=== PATIENT | female | born 1980 | race Caucasian/White ===

== ENCOUNTER → 2017-03-06 | Outpatient (CLI) | payer MEDICARE, OTHER ==
[2016-10-05 18:27] VITALS: BP 131/79
[~2017-03-06] MED LIST: COLE500G2 PO; DIAZ5TAB4 PO; DICY10CA53 PO; DIPH1TAB PO; FERR-26 PO; HYDR25TA PO; LAMO200T PO; LITH5CAP PO; OMEP10CA3 PO; RAME8TAB8 PO; RANI75TA95 PO; VENL25TA PO
--- NOTE | 2017-03-06 15:15 | EKG ---
[facility] [address] [place] [address] Test Date: 2017-03-06 Test Time: 15:16:23 Pat Name: LINDSAY COBOS Department: Room: Gender: F Transplant Case Manager: MARQUIS : 1980 Requested By: NAZ KNIGHT Order Number: [id number] Reading MD: Bk Adam Measurements Intervals [place]illiam Rate: 75 P: 28 TN: 132 QRS: 43 QRSD: 90 T: 20 QT: 410 QTc: 461 Interpretive Statements SINUS RHYTHM INCOMPLETE RIGHT BUNDLE BRANCH BLOCK NO SPECIFIC ECG ABNORMALITIES RI6.01 No previous ECG available for comparison Electronically Signed On 03-08-2017 11:31:32 CDT by Bk Adam
[2017-03-06 15:19] LABS: BASO # 0.1 x10^3/uL (0.0-0.2); BASO % 1 % (0-3); EOS % 0 % (0-3); HEMATOCRIT 37.8 % (36.0-47.0); LYMPH % 14 % (24-48); MEAN CORPUSCULAR HEMOGLOBIN 26 pg (25-35); MEAN CORPUSCULAR HGB CONC 32 g/dL (31-37); MEAN CORPUSCULAR VOLUME 83 fL (79-100); MONO % 4 % (0-9); NEUT % 81 % (31-73); PLATELET COUNT 266 x10^3/uL (140-400); RED BLOOD COUNT 4.54 x10^6/uL (3.50-5.40); RED CELL DISTRIBUTION WIDTH 16.9 % (11.5-14.5); WHITE BLOOD COUNT 14.3 x10^3/uL (4.0-11.0)
[2017-03-06 15:48] LABS: ALBUMIN 3.6 g/dL (3.4-5.0); ALBUMIN/GLOBULIN RATIO 0.9 (1.0-1.7); CALCIUM 8.9 mg/dL (8.5-10.1); CREATININE 1.1 mg/dL (0.6-1.0); GFR 55.9; POTASSIUM 3.6 mmol/L (3.5-5.1); TOTAL BILIRUBIN 0.2 mg/dL (0.2-1.0); TOTAL PROTEIN 7.5 g/dL (6.4-8.2)
[2017-03-06 17:51] LABS: BILIRUBIN,URINE SMALL (NEG); GLUCOSE,URINE NEGATIVE (NEG); NITRITE,URINE NEGATIVE (NEG); PH,URINE 5.5; PROTEIN,URINE 30 mg/dL (NEG-TRACE)
[2017-03-06 18:16] LABS: BACTERIA,URINE 0 /HPF (0-FEW); RBC,URINE OCC /HPF (0-2); SQUAMOUS EPITHELIAL CELL,UR OCC /LPF; WBC,URINE OCC /HPF (0-4)
== END | disposition home or self-care (01) ==
LOC: SURGPAT 14:12
PROVIDERS: ATTEND Obstetrics & Gynecology
DX: Z01.818 Encounter for other preprocedural examination (principal)
CPT/HCPCS: 36415; 80053; 81001; 85027; 93005

== ENCOUNTER 2017-03-14 05:54 | Observation (INO) | payer MEDICARE, MEDICAID ==
[2017-03-14] VITALS (7 sets, daily range): BP systolic 95–122; BP diastolic 56–68
[~2017-03-14] VITALS: Ht 157.5 cm; Wt 139.3 kg
[2017-03-14] MEDS ORDERED: CLINDAMYCIN 600MG PREMIX 50 ML IV ONE (06:00)
[2017-03-14] MEDS ORDERED: PROCHLORPERAZINE 10 MG/2 ML VIAL. IV PRN (07:00)
[2017-03-14] MEDS ORDERED: ONDANSETRON PF 4 MG/2 ML VIAL. IV PRN ×2 (07:00→09:30)
[2017-03-14] MEDS ORDERED: MORPHINE SULFATE 2 MG/ML DISP.SYRIN. IV PRN ×2 (07:00→09:30)
[2017-03-14] MEDS ORDERED: fentaNYL PF VIAL 100 MCG/2 ML VIAL IV PRN ×2 (07:00)
[2017-03-14] MEDS ORDERED: IV RINGERS,LACTATED 1000ML 1,000 ML IV SCH ×2 (07:00)
[2017-03-14] MEDS ORDERED: LIDOCAINE 1% 1 ML SYRINGE. ID PRN (07:00)
[2017-03-14] MEDS ORDERED: HYDROmorphone 2 MG/ML VIAL IV PRN (07:00)
[2017-03-14 07:12] LABS: NEG OBC UR NEG; POS OBC UR POS
[2017-03-14] MEDS ORDERED: ESTROGENS, CONJ VAGINAL CREAM 30GM TUBE. ONE (07:32)
[2017-03-14] MEDS ORDERED: METHYLENE BLUE 1% 1 ML VIAL. ONE (07:32)
[2017-03-14] MEDS ORDERED: BUPIVACAINE-EPI 0.25%-1:200000 50 ML VIAL. ONE (07:32)
[2017-03-14] MEDS ORDERED: fentaNYL PF VIAL 100 MCG/2 ML VIAL ONE (07:36)
[2017-03-14] MEDS ORDERED: ONDANSETRON PF 4 MG/2 ML VIAL. ONE (07:36)
[2017-03-14] MEDS ORDERED: DEXAMETHASONE SOD PHOS 20 MG/5 ML VIAL. ONE (07:36)
[2017-03-14] MEDS ORDERED: DESFLURANE 61 TO 120 MINUTES IH ONE (07:36)
[2017-03-14] MEDS ORDERED: ESMOLOL 100 MG/10 ML VIAL. IV ONE (07:36)
[2017-03-14] MEDS ORDERED: PROPOFOL 20 ML IV ONE ×2 (07:36→07:40)
[2017-03-14] MEDS ORDERED: LIDOCAINE 2% PF Vial for OR 5 ML VIAL. ONE (07:36)
[2017-03-14] MEDS ORDERED: MIDAZOLAM HCL/PF 2 MG/2 ML VIAL. ONE (07:36)
[2017-03-14] MEDS ORDERED: SUCCINYLCHOLINE 200 MG/10 ML VIAL. ONE (07:40)
[2017-03-14] MEDS ORDERED: KETOROLAC 30 MG/ML INJ FOR OR. INJ ONE (07:42)
[2017-03-14] MEDS ORDERED: ROCURONIUM 50 MG/5 ML VIAL. ONE (07:42)
[2017-03-14] MEDS ORDERED: HEPARIN PF for SUB-Q USE 5,000 UNIT/0.5 ML VIAL. SQ ONE (07:45)
[2017-03-14] MEDS ORDERED: PHENYLEPHRINE in 0.9% NACL PF 1 MG/10 ML DISP.SYRIN. IV ONE (08:26)
[2017-03-14] MEDS ORDERED: GLYCOPYRROLATE 1 MG/5 ML VIAL. ONE (09:19)
[2017-03-14] MEDS ORDERED: NEOSTIGMINE METHYLSULFATE 5 MG/5 ML SYRINGE. ONE (09:20)
[2017-03-14] MEDS ORDERED: diphenhydrAMINE 50 MG/ML VIAL IV PRN (09:30)
[2017-03-14] MEDS ORDERED: oxyCODONE/APAP 5/325 1 TAB TABLET PO PRN (09:30)
[2017-03-14] MEDS ORDERED: NALOXONE 0.4 MG/ML VIAL. IV PRN (09:30)
[2017-03-14] MEDS ORDERED: MAGNESIUM HYDROXIDE 2,400 MG/30 ML ORAL.SUSP. PO PRN (09:30)
[2017-03-14] MEDS ORDERED: ZOLPIDEM 5 MG TABLET. PO PRN (09:30)
[2017-03-14] MEDS ORDERED: CALCIUM CARBONATE 500 MG TAB.CHEW PO PRN (09:30)
[2017-03-14] MEDS ORDERED: 0.9 % SODIUM CHLORIDE 10 ML DISP.SYRIN. IV PRN (09:30)
[2017-03-14] MEDS ORDERED: diphenhydrAMINE HCL 25 MG CAPSULE PO PRN (09:30)
[2017-03-14] MEDS ORDERED: SIMETHICONE 80 MG TAB.CHEW PO PRN (09:30)
[2017-03-14] MEDS ORDERED: LACTULOSE 20 GM/30 ML SOLUTION. PO PRN (09:30)
[2017-03-14] MEDS ORDERED: MAG HYDROX/ALUMINUM HYD/SIMETH 30 ML ORAL.SUSP PO PRN (09:30)
--- NOTE | 2017-03-14 09:45 | PDOC ---
BRIEF OPERATIVE NOTE Date: March 14, 2017 Pre-Op Diagnosis menorrhagia, history of anemia, dysmenorrhea, morbid obesity and sleep apnea Post-Op Diagnosis same Procedure Performed LAVH, bilateral salpingectomy Surgeon Dr. Tiarra Knight Manager Art Dr. Yeimi Aguero Anesthesiologist see anesthesia records Anesthesia Type: General Blood Loss 50cc IV Fluid see anesthesia records Urine Output 75cc clear via jackson catheter Specimens Obtained cervix, uterus, bilateral tubes Findings mildly enlarged RV uterus, evidence of prior tubal ligation, normal bilateral ovaries Complications none Additional Remarks [id number] TIARRA KNIGHT MD March 14, 2017 09:45
[2017-03-14] MEDS ORDERED: diazePAM 5 MG TABLET PO SCH (10:00)
[2017-03-14] MEDS ORDERED: HEPARIN PF for SUB-Q USE 5,000 UNIT/0.5 ML VIAL. SQ SCH (11:00)
[2017-03-14] MEDS ORDERED: PANTOPRAZOLE 40 MG TABLET.DR. PO SCH (11:30)
[2017-03-14] MEDS ORDERED: FERROUS SULFATE 325 MG TABLET. PO SCH (12:00)
--- NOTE | 2017-03-14 12:31 | OP ---
DATE OF SURGERY: 03/14/2017 PREOPERATIVE DIAGNOSES: Menorrhagia, history of anemia, dysmenorrhea, morbid obesity, and sleep apnea. POSTOPERATIVE DIAGNOSES: Menorrhagia, history of anemia, dysmenorrhea, morbid obesity, and sleep apnea. PROCEDURE: Laparoscopic-assisted vaginal hysterectomy and bilateral salpingectomy. SURGEON: Dr. Naz Rosa. HEAVY COIL WINDER: Dr. Yeimi Aguero. ANESTHESIA: General. ESTIMATED BLOOD LOSS: 50 mL. URINE OUTPUT: 75 mL clear via Vergara catheter. SPECIMEN REMOVED: Cervix, uterus, and bilateral tubes. FINDINGS: A mildly enlarged retroverted uterus, evidence of prior tubal ligation, normal bilateral ovaries. No gross abnormality of the bowel. The gutters appeared normal. Right upper quadrant appeared normal. COMPLICATIONS: None. DESCRIPTION OF PROCEDURE: This patient was taken to the Operating Room where general anesthesia was placed. The patient was placed in dorsal lithotomy position in To stirrups with her arms tapped. The patient was prepped and draped in the normal sterile fashion, and a Vergara catheter had previously been inserted under sterile technique. At this point, after performing a timeout, a bivalve speculum was placed in the patient's vagina. A single tooth tenaculum was used to grasp the anterior lip of the cervix. Approximately, 10 mL of 0.25% Marcaine with epinephrine was used to circumferentially inject around the cervix for both hemodissection and hemostatic purposes later. At this point, the Valtchev uterine manipulator was placed through the endocervical os, locked on the single tooth tenaculum, and the bivalve speculum was then removed. Top gloves were discarded and changed. Attention was then turned to the abdomen where a small supraumbilical incision was made with the scalpel. A curved Sushma was used to dissect through the subcuticular layer down to the fascia. The 5-mm Visiport was used to directly enter the abdominal cavity. Opening patient pressure was 3-4 mmHg. Carbon dioxide gas was used to then appropriately insufflate the abdominal cavity to maintain a pressure of 15 mmHg. The patient was placed in Trendelenburg position. Direct abdominal placement was confirmed via the laparoscope. Right and left lower quadrant ports, 5-mm disposable atraumatic Ethicon ports, were placed under direct visualization without difficulty after transilluminating the abdomen, making a small incision, and putting these then on both sides. Right and left lower quadrant ports were obtained. The left round ligament was cauterized and cut with the LigaSure Advance, creating a window in the mesosalpinx, going down and making the bladder flap sharply with the monopolar tip, elevating the left tube and ovary. Left ovary was normal. Crossing above the ovary below the tube, getting the mesosalpinx, amputating the tube, but leaving the normal ovary per the patient's request and then crossing the uterine ovarian pedicle cauterizing and cutting with the LigaSure Advance the whole time. Once this was done and the bladder was assured to be down, the uterine vessels were obtained on this side, and then everything was done exactly the same on the right first starting with the round ligaments, cauterizing and cutting in a stepwise fashion, creating that window in the mesosalpinx, going down and further meeting that bladder flap anteriorly, and then elevating the right tube and ovary, again normal right ovary crossing above the ovary below the tube in the mesosalpinx, amputating the tube, but leaving the normal right ovary, and then crossing the right uterine ovarian pedicle, then going down and obtaining the uterine vessels on this side as well. Once this was done, the uterus did begin to bryce. We went through the cardinal and broad ligaments crossing contralaterally but staying vertical and hugging the cervix, going through the cardinal and broad ligaments cauterizing and cutting down to the level of the uterosacral ligaments bilaterally. This was all done while pushing up with the Valtchev and pushing the uterus up and making sure the bladder was down. Once we were down to the level of the uterosacrals, the uterus was freely mobile, and there were no adhesions to the posterior anything, and it was sufficiently blanched. All instruments were removed from the abdomen. The scope and light and everything returned off, and attention was turned vaginally. At this point, the single tooth and Valtchev were removed. The legs were elevated. The short weighted speculum was placed in the patient's vagina. Thyroid Julio César clamps were placed on the anterior and posterior lips of the cervix respectively. A scalpel was used to make a circumferential incision in the cervix. An open Ray-Sony 4x4 was used to gently push up the anterior bladder peritoneum. The anterior cul-de-sac was bluntly entered. The cervix was elevated. The posterior cul-de-sac was sharply entered with the Cadet scissors. A #0 Vicryl stitch was used to secure the posterior peritoneum to the vaginal cuff, and it was tagged with a curved Sushma clamp, and the needle was cut and passed off. The short weighted speculum was removed and replaced with the long weighted Rosa speculum. At this point, curved Kisha clamps x2 were placed on the left uterosacral ligament. They were doubly clamped with curved Heaneys, cut with Cadet scissors, and suture ligated x2 with #0 Vicryl, and the second one was taken through the vaginal cuff and tagged with a straight Sushma clamp, and the needle was cut and passed off. This was done exactly the same on the patient's left side, double clamping the uterosacral with curved Kisha's, cutting with Cadet scissors, and suture ligating x2 with #0 Vicryl, again taking the second one through the vaginal cuff, and I knew we were in anteriorly, and I could feel the pedicles. I tied to move the cervix over to look at the side and see if we were clear. The entire cervix, uterus, and bilateral tubes were delivered in total and passed off for permanent pathology. The anterior Ray-Sony sponge was removed as well. There was some scant bleeding from the patient's left side. This was grasped with the ____ , and the LigaSure vaginal Max was placed over this and cauterized the pedicle with excellent results. A sponge stick examined the remaining pedicles. Everything appeared to be hemostatic. The anterior bladder peritoneum was very, very high, and I did not want to pull down on it, so I did just go below the cuff, take a small piece of it with 2-0 Vicryl through the left uterosacral ligament, posterior peritoneum, and right uterosacral ligament, thus closing the peritoneum in a pursestring like fashion. Once this was done, the right and left uterosacral tags were clipped. All that remained was that posterior cuff tag and a full length 2-0 Vicryl was used to close the cuff in an anterior to posterior running locked fashion. Once this was done, it was tied to that posterior cuff tag, and examining the cuff revealed good hemostasis vaginally. At this point, everything was removed. All gloves were discarded and changed. The legs were put back down for a second look from above. A second look from above revealed complete hemostasis. She was placed back in Trendelenburg. Copious irrigation was done. Estimated blood loss prior to irrigating was 50 mL. The gutters were clear. There were no clots, no bleeding. Tisseel was placed over the cuff. The right and left lower quadrant ports were taken out under direct visualization. These two were hemostatic. Gas was released from the umbilical port. All three port sites were closed with 4-0 nylon at the level of the skin and injected with a total of 10 mL of 0.25% Marcaine with epinephrine. She was awakened from anesthesia and is currently in the Recovery Room in stable condition. NAZ ROSA MD DR: OSWALDO/paula JOB#: [id number] / [id number]
[2017-03-14] MEDS: HYDROcodone/APAP 5/325MG 1 TAB TABLET PO PRN (22:59)
[2017-03-15] MEDS: HYDROcodone/APAP 5/325MG 1 TAB TABLET PO PRN (00:48)
[2017-03-15 04:18] LABS: CALCIUM 9.2 mg/dL (8.5-10.1); CREATININE 1.2 mg/dL (0.6-1.0); GFR 50.6; POTASSIUM 4.8 mmol/L (3.5-5.1)
[2017-03-15 06:17] VITALS: BP 131/76
--- NOTE | 2017-03-15 09:43 | PDOC ---
SURGICAL PROGRESS NOTE Subjective Doing well without complaints. Tolerating regular diet, passing gas, voiding well. Up in chair now. Wants to go home Vital Signs Vital Signs Date Time Temp Pulse Resp B/P (MAP) Pulse Ox O2 Delivery O2 Flow Rate FiO2 03/15/17 06:17 98.6 84 18 131/76 (94) 98.6 03/14/17 23:00 95 Room Air 03/14/17 10:30 2 I&O Intake and Output 03/15/17 07:00 Intake Total 1740 ml Output Total 225 ml Balance 1515 ml Intake Oral 590 ml IV Total 1150 ml Output Urine Total 175 ml Estimated Blood Loss 50 ml # Voids 3 PATIENT HAS A HUGHES: No General: Alert, Oriented X3, Cooperative, No acute distress HEENT: Atraumatic Heart: Regular rate Abdomen: Soft, No tenderness, Other (all 3 port sites c/d/i) Extremities: No clubbing, No cyanosis, No edema, No tenderness/swelling Skin: No rashes, No breakdown Neuro: Normal speech Psych/Mental Status: Mental status NL, Mood NL Labs Laboratory Tests Test 03/14/17 06:40 03/15/17 03:50 Urine Test Negative (NEG) Hematocrit 28.5 % (36.0-47.0) Sodium Level 138 mmol/L (136-145) Potassium Level 4.8 mmol/L (3.5-5.1) Chloride Level 105 mmol/L (98-107) Carbon Dioxide Level 22 mmol/L (21-32) Anion Gap 11 (6-14) Blood Urea Nitrogen 18 mg/dL (7-20) Creatinine 1.2 mg/dL (0.6-1.0) Estimated GFR (Cockcroft-Gault) 50.6 Glucose Level 153 mg/dL (70-99) Calcium Level 9.2 mg/dL (8.5-10.1) Laboratory Tests Test 03/15/17 03:50 Hematocrit 28.5 % (36.0-47.0) Sodium Level 138 mmol/L (136-145) Potassium Level 4.8 mmol/L (3.5-5.1) Chloride Level 105 mmol/L (98-107) Carbon Dioxide Level 22 mmol/L (21-32) Anion Gap 11 (6-14) Blood Urea Nitrogen 18 mg/dL (7-20) Creatinine 1.2 mg/dL (0.6-1.0) Estimated GFR (Cockcroft-Gault) 50.6 Glucose Level 153 mg/dL (70-99) Calcium Level 9.2 mg/dL (8.5-10.1) I have reviewed the following labs, vitals, nursing, also pt has voided several times without catheter so did not keep output (way more than 175cc per RN) Cardiovascular: No pertinent hx Pulmonary: Other (sleep apnea) GI: No pertinent hx Heme/Onc: Anemia NOS, Iron deficiency Anemia Psych: Bipolar Problem List menorrhagia, anemia Assessment/Plan POD #1 s/p LAVH, bilateral salpingectomy Routine PO Care D/c to home NPV x 6 weeks Light/limited activity x [address] while on narcotic pain pills Charlotte written ok for OTC ibuprofen as well Keep scheduled po appt in one week in the office with me call or return sooner if has any questions not limited to but including pain unrelieved with pain pills, increased or unexplained vaginal bleeding or any other questions or concerns Problems: NAZ KNIGHT MD March 15, 2017 09:43
--- NOTE | 2017-03-15 09:47 | PDOC3 ---
Discharge Summary Visit Information Date of Admission: March 14, 2017 Date of Discharge: March 15, 2017 Admitting Diagnosis Comment: menorrhagia, h/o anemia, sleep apnea Brief Hospital Course Allergies Allergies Coded Allergies Type Severity Reaction Last Updated Verified Penicillins Allergy Intermediate RASH 03/15/17 Yes Vital Signs Vital Signs Date Time Temp Pulse Resp B/P (MAP) Pulse Ox O2 Delivery O2 Flow Rate FiO2 03/15/17 06:17 98.6 84 18 131/76 (94) 98.6 03/14/17 23:00 95 Room Air 03/14/17 10:30 2 Lab Results Laboratory Tests Test 03/14/17 06:40 03/15/17 03:50 Urine Test Negative (NEG) Hematocrit 28.5 % (36.0-47.0) Sodium Level 138 mmol/L (136-145) Potassium Level 4.8 mmol/L (3.5-5.1) Chloride Level 105 mmol/L (98-107) Carbon Dioxide Level 22 mmol/L (21-32) Anion Gap 11 (6-14) Blood Urea Nitrogen 18 mg/dL (7-20) Creatinine 1.2 mg/dL (0.6-1.0) Estimated GFR (Cockcroft-Gault) 50.6 Glucose Level 153 mg/dL (70-99) Calcium Level 9.2 mg/dL (8.5-10.1) Laboratory Tests Test 03/15/17 03:50 Hematocrit 28.5 % (36.0-47.0) Sodium Level 138 mmol/L (136-145) Potassium Level 4.8 mmol/L (3.5-5.1) Chloride Level 105 mmol/L (98-107) Carbon Dioxide Level 22 mmol/L (21-32) Anion Gap 11 (6-14) Blood Urea Nitrogen 18 mg/dL (7-20) Creatinine 1.2 mg/dL (0.6-1.0) Estimated GFR (Cockcroft-Gault) 50.6 Glucose Level 153 mg/dL (70-99) Calcium Level 9.2 mg/dL (8.5-10.1) Brief Hospital Course Ms. Li is a 36 old female who presented with menorrhagia, pain, h/o anemia and sleep apnea with morbid obesity. She underwent an LAVH with bilateral salpingectomy without complications. She has had an unremarkable postoperative course voiding without catheter, tolerating regular diet, ambulating well and wanting to go home. She has mild po anemia and will stay on iron pills. Keep her scheduled follow up with me in one week, call or return sooner for any questions or concerns. Discharge Information Condition at Discharge: Stable Follow Up: Weeks Disposition/Orders: D/C to Home Scheduled Diazepam (Diazepam), 1 TAB PO TID, (Reported) Diphenoxylate Hcl/Atropine (Lomotil Tablet), 1 TAB PO TID, (Reported) Ferrous Sulfate (Ferrous Sulfate), 1 TAB PO DAILY, (Reported) Lamotrigine (Lamotrigine), 1 TAB PO BID, (Reported) Omeprazole (Omeprazole), 10 MG PO DAILY, (Reported) Ramelteon (Rozerem), 8 MG PO HS, (Reported) Ranitidine Hcl (Ranitidine Hcl), 75 MG PO BID, (Reported) Venlafaxine Hcl (Venlafaxine Hcl), 25 MG PO BID, (Reported) Miscellaneous Medications Colestipol Hcl (Colestipol Hcl), 500 GM PO, (Reported) Toyah Aspartate (Lithate), 5 MG PO, (Reported) Patient Instructions Patient Instructions POD #1 s/p LAVH, bilateral salpingectomy Routine PO Care D/c to home NPV x 6 weeks Light/limited activity x [address] while on narcotic pain pills [place] written ok for OTC ibuprofen as well Keep scheduled po appt in one week in the office with me call or return sooner if has any questions not limited to but including pain unrelieved with pain pills, increased or unexplained vaginal bleeding or any other questions or concerns May resume all home meds NAZ KNIGHT MD March 15, 2017 09:47
[2017-03-15 10:30] VITALS: BP 128/80
--- NOTE | 2017-03-16 11:34 | PATHOLOGY ---
PATHOLOGY REPORT * * * * * * * * FINAL DIAGNOSIS: Uterus and bilateral fallopian tubes, hysterectomy and bilateral salpingectomy: - Cervix with mild chronic inflammation, squamous metaplasia, and nabothian cysts. - Proliferative phase endometrium. - Myometrium and serosal surface with no pathologic diagnosis. - Left fallopian tube with simple paratubal cysts. - Right fallopian tube with simple paratubal cysts. (SKM:; d/t: 03/16/17) REPORT ELECTRONICALLY SIGNED BY: Elina Marin M.D. DATE/TIME: 03/16/2017 11:34 * * * * * * * * GROSS PATHOLOGY: Received in formalin labeled Leanaus, cervix, bilateral tubes is a hysterectomy specimen including uterus, cervix, and bilateral fallopian tubes which weighs 126 g and measures 9.3 cm superior to inferior, 5.2 cm cornu to cornu, and 4.1 cm, anterior to posterior. The serosa is english-pink and smooth. The english-white glistening cervical face measures 3.3 x 3.0 cm with a 1.3 cm centrally located ovoid cervical os. The specimen is opened to reveal a patent trabeculated endocervical canal and a english-pink triangular endometrium. Sectioning through the specimen reveals at the transformation from the 0.1 similar thickened endometrium into the 1.8 cm in average thickness english-pink, trabeculated myometrium is well demarcated. The left fallopian tube including fimbriated end measures 3.0 cm in length by up to 0.7 cm in diameter. The specimen displays multiple paratubal cysts measuring up to 0.6 x 0.5 x 0.3 cm. Sectioning through the specimen reveals a diffusely patent lumen. The right fallopian tube including fimbriated end measures 4.1 cm in length by up to 0.6 cm in diameter. The specimen displays multiple paratubal cysts measuring up to 0.8 x 0.5 x 0.5 cm. Sectioning through the specimen reveals a diffusely patent lumen. Section code: T6mqceql 12:00, C8owwxxx 6:00, A8rfnvjnct uterus, Z6offybimlz uterus, A5left fallopian tube, U5yoolb fallopian tube. (AKA; 03/15/2017) INITIAL CPT CODE(S): A; 34016 Professional services performed by [facility] at [address] [place] [address] Technical services performed by [facility] at [address] [place] [address], [address], [place] [address]. SPECIMEN(S) RECEIVED: A.Uterus, cervix, bilateral tubes CLINICAL HISTORY: Heavy periods PATIENT: LINDSAY COBOS /AGE: 6 1980 (Age: 36) PATIENT #: [id number] ALT CASE #: SPECIMEN COLLECTION DATE: 03/14/2017 SPECIMEN RECEIVED DATE: 03/14/2017 [facility] - [address] [place] [address] - PHONE: [phone] * * * END OF REPORT * * *
== END 2017-03-15 10:47 | disposition home or self-care (01) ==
LOC: SURG 05:54 → 3 NORTH 09:45
PROVIDERS: ADMIT Obstetrics & Gynecology; ATTEND Obstetrics & Gynecology
DX: N92.0 Excessive and frequent menstruation with regular cycle (principal); G47.30 Sleep apnea, unspecified; D64.9 Anemia, unspecified; N85.4 Malposition of uterus; N94.6 Dysmenorrhea, unspecified; E66.01 Morbid (severe) obesity due to excess calories; N87.9 Dysplasia of cervix uteri, unspecified; N88.8 Other specified noninflammatory disorders of cervix uteri; Z98.51 Tubal ligation status
CPT/HCPCS: 36415; 58550; 80048; 81025; 85014; 86850; 86900; 86901; 88307; 96374; 96375; C1769; G0378; G0379; J0330; J1100; J1885; J1956; J2250; J2270; J2370; J2405; J2704; J2710; J3010; J3490; J7030; J7120; Q9968

== ENCOUNTER 2017-03-27 10:42 | Emergency (ER) | payer MEDICARE, MEDICAID ==
[~2017-03-27] VITALS: Ht 162.6 cm; Wt 139.3 kg
[2017-03-27 11:36] LABS: BILIRUBIN,URINE SMALL (NEG); GLUCOSE,URINE NEGATIVE (NEG); NITRITE,URINE NEGATIVE (NEG); PH,URINE 5.5; PROTEIN,URINE 30 mg/dL (NEG-TRACE)
[2017-03-27 11:47] LABS: BASO % 0 % (0-3); EOS % 0 % (0-3); HEMATOCRIT 25.3 % (36.0-47.0); HEMOGLOBIN 8.2 g/dL (12.0-15.5); LYMPH # 1.7 x10^3/uL (1.0-4.8); LYMPH % 12 % (24-48); MEAN CORPUSCULAR HEMOGLOBIN 28 pg (25-35); MEAN CORPUSCULAR HGB CONC 32 g/dL (31-37); MEAN CORPUSCULAR VOLUME 85 fL (79-100); MONO % 4 % (0-9); NEUT % 83 % (31-73); PLATELET COUNT 310 x10^3/uL (140-400); RED BLOOD COUNT 2.97 x10^6/uL (3.50-5.40); RED CELL DISTRIBUTION WIDTH 18.2 % (11.5-14.5); WHITE BLOOD COUNT 13.5 x10^3/uL (4.0-11.0)
[2017-03-27 11:54] LABS: BACTERIA,URINE MANY /HPF (0-FEW); RBC,URINE 0 /HPF (0-2); SQUAMOUS EPITHELIAL CELL,UR MOD /LPF; WBC,URINE 20-40 /HPF (0-4)
[2017-03-27 11:58] LABS: CALCIUM 8.7 mg/dL (8.5-10.1); CREATININE 1.1 mg/dL (0.6-1.0); GFR 55.9; POTASSIUM 3.6 mmol/L (3.5-5.1)
[2017-03-27 12:03] LABS: ALBUMIN 3.2 g/dL (3.4-5.0); ALBUMIN/GLOBULIN RATIO 0.8 (1.0-1.7); TOTAL BILIRUBIN 0.6 mg/dL (0.2-1.0); TOTAL PROTEIN 7.4 g/dL (6.4-8.2)
--- NOTE | 2017-03-27 12:08 | RAD ---
CT abdomen and pelvis without contrast History: Left-sided abdominal pain. Hematuria for 2 days. Comparison: CT abdomen pelvis 03/03/2015. Hysterectomy 03/14/2017. Technique: Helical CT of the abdomen and pelvis was performed without intravenous or oral contrast. Axial, sagittal, and coronal reconstructions were obtained. One or more of the following individualized dose reduction techniques were utilized for the study: Automated exposure control Adjustment of mA and/or kV according to patient's size Use of iterative reconstruction technique. Findings: Evaluation of the solid organs is limited by lack of intravenous contrast. Evaluation of enteric structures may be limited by lack of oral contrast. Spleen is enlarged measuring 15.5 cm in axial dimension. Mild fatty liver disease is seen. The pancreas, gallbladder, and bilateral adrenal glands are unremarkable. There is no evidence of bowel obstruction. No free air is identified in the abdomen or pelvis. Appendix appears within normal limits. Urinary bladder is unremarkable. Uterus is absent. Mild-moderate amount of mildly dense fluid is seen in the pelvis, likely representing postoperative hemorrhage. The largest collection is seen in the lower pelvis measuring about 11 x 7 cm in axial dimension x 7 cm in craniocaudal dimension. The left ovary is thought enlarged measuring about 5 cm in maximum dimension. Bilateral kidneys and ureters are free of stone or obstruction. Urinary bladder is unremarkable. Impression: 1. No evidence of urinary stone or obstruction. 2. Mild-moderate amount of mildly dense fluid is seen in the pelvis, presumably postoperative hemorrhage. 3. The left ovary appears enlarged measuring about 5 cm maximum dimension. If there is concern for torsion, pelvic ultrasound could be attempted.
[2017-03-27 13:00] VITALS: BP 110/70
--- NOTE | 2017-03-27 13:35 | PHYS DOC ---
Past Medical History Past Medical History: Anxiety, Bipolar, Depression, GERD, UTI Past Surgical History: , Hysterectomy, Tubal ligation Alcohol Use: None Drug Use: None Adult General Chief Complaint Chief Complaint: ABDOMINAL PAIN HPI HPI Patient is a 36 year old female with a history of bipolar, depression, anxiety , GERD, who presents today with moderate lower abdominal pressure for 1 week and hematuria for 2 days. Patient states she had a laparotomy hysterectomy done on March 14, [address] Naz Rosa. She states she followed up last week for the same complaints. She states they put her on Levaquin for possible infection. Patient states her symptoms have not improved. Patient states she is taking hydrocodone for her pain. Patient denies any nausea vomiting. Denies any urgency frequency or dysuria. Review of Systems Review of Systems Constitutional: Denies fever or chills [] Eyes: Denies change in visual acuity, redness, or eye pain [] HENT: Denies nasal congestion or sore throat [] Respiratory: Denies cough or shortness of breath [] Cardiovascular: No additional information not addressed in HPI [] GI: Lower abdominal pressure : hematuria [] Musculoskeletal: Denies back pain or joint pain [] Integument: Denies rash or skin lesions [] Neurologic: Denies headache, focal weakness or sensory changes [] Endocrine: Denies polyuria or polydipsia [] Allergies Allergies Allergies Coded Allergies Type Severity Reaction Last Updated Verified Penicillins Allergy Intermediate RASH 03/15/17 Yes Physical Exam Physical Exam Constitutional: Well developed, well nourished, no acute distress, non-toxic appearance. [] HENT: Normocephalic, atraumatic, bilateral external ears normal, oropharynx moist, no oral exudates, nose normal. [] Eyes: PERRLA, EOMI, conjunctiva normal, no discharge. [] Neck: Normal range of motion, no tenderness, supple, no stridor. [] Cardiovascular:Heart rate regular rhythm, no murmur [] Lungs & Thorax: Bilateral breath sounds clear to auscultation [] Abdomen: Rounded abdomen. Moderate bruising noted on the lower abdomen. Patient states it's been there since surgery. Bowel sounds normal, soft, tenderness diffusely on the mid lower abdomen., no masses, no pulsatile masses. [] Skin: Warm, dry, no erythema, no rash. [] Back: No tenderness, no CVA tenderness. [] Extremities: No tenderness, no cyanosis, no clubbing, ROM intact, no edema. [] Neurologic: Alert and oriented X 3, normal motor function, normal sensory function, no focal deficits noted. [] Psychologic: Affect normal, judgement normal, mood normal. [] Current Patient Data Vital Signs Vital Signs Date Time Temp Pulse Resp B/P (MAP) Pulse Ox O2 Delivery O2 Flow Rate FiO2 03/27/17 11:00 98.8 86 18 107/51 (69) 99 Room Air 98.8 Lab Values Laboratory Tests Test 03/27/17 10:07 03/27/17 10:55 03/27/17 11:38 POC Urine HCG, Qualitative Hcg negative (Negative) Urine Collection Type Void Urine Color Kassy Urine Clarity Clear Urine pH 5.5 Urine Specific Elgin 1.020 Urine Protein 30 mg/dL (NEG-TRACE) Urine Glucose (UA) Negative mg/dL (NEG) Urine Ketones (Stick) Negative mg/dL (NEG) Urine Blood Large (NEG) Urine Nitrite Negative (NEG) Urine Bilirubin Small (NEG) Urine Urobilinogen Dipstick 1.0 mg/dL (0.2 mg/dL) Urine Leukocyte Esterase Moderate (NEG) Urine RBC 0 /HPF (0-2) Urine WBC 20-40 /HPF (0-4) Urine Squamous Epithelial Cells Mod /LPF Urine Bacteria Many /HPF (0-FEW) Urine Mucus Marked /LPF White Blood Count 13.5 x10^3/uL (4.0-11.0) H Red Blood Count 2.97 x10^6/uL (3.50-5.40) L Hemoglobin 8.2 g/dL (12.0-15.5) L Hematocrit 25.3 % (36.0-47.0) L Mean Corpuscular Volume 85 fL (79-100) Mean Corpuscular Hemoglobin 28 pg (25-35) Mean Corpuscular Hemoglobin Concent 32 g/dL (31-37) Red Cell Distribution Width 18.2 % (11.5-14.5) H Platelet Count 310 x10^3/uL (140-400) Neutrophils (%) (Auto) 83 % (31-73) H Lymphocytes (%) (Auto) 12 % (24-48) L Monocytes (%) (Auto) 4 % (0-9) Eosinophils (%) (Auto) 0 % (0-3) Basophils (%) (Auto) 0 % (0-3) Neutrophils # (Auto) 11.2 x10^3uL (1.8-7.7) H Lymphocytes # (Auto) 1.7 x10^3/uL (1.0-4.8) Monocytes # (Auto) 0.6 x10^3/uL (0.0-1.1) Eosinophils # (Auto) 0.1 x10^3/uL (0.0-0.7) Basophils # (Auto) 0.0 x10^3/uL (0.0-0.2) Sodium Level 140 mmol/L (136-145) Potassium Level 3.6 mmol/L (3.5-5.1) Chloride Level 105 mmol/L (98-107) Carbon Dioxide Level 23 mmol/L (21-32) Anion Gap 12 (6-14) Blood Urea Nitrogen 8 mg/dL (7-20) Creatinine 1.1 mg/dL (0.6-1.0) H Estimated GFR (Cockcroft-Gault) 55.9 BUN/Creatinine Ratio 7 (6-20) Glucose Level 104 mg/dL (70-99) H Calcium Level 8.7 mg/dL (8.5-10.1) Total Bilirubin 0.6 mg/dL (0.2-1.0) Aspartate Amino Transferase (AST) 11 U/L (15-37) L Alanine Aminotransferase (ALT) 14 U/L (14-59) Alkaline Phosphatase 86 U/L (46-116) Total Protein 7.4 g/dL (6.4-8.2) Albumin 3.2 g/dL (3.4-5.0) L Albumin/Globulin Ratio 0.8 (1.0-1.7) L Lipase 77 U/L (73-393) Laboratory Tests 03/27/17 11:38 Laboratory Tests 03/27/17 11:38 EKG EKG [] Radiology/Procedures Radiology/Procedures []PROCEDURE: CT ABDOMEN PELVIS WO CONTRAST CT abdomen and pelvis without contrast History: Left-sided abdominal pain. Hematuria for 2 days. Comparison: CT abdomen pelvis 03/03/2015. Hysterectomy 03/14/2017. Technique: Helical CT of the abdomen and pelvis was performed without intravenous or oral contrast. Axial, sagittal, and coronal reconstructions were obtained. One or more of the following individualized dose reduction techniques were utilized for the study: Automated exposure control Adjustment of mA and/or kV according to patient's size Use of iterative reconstruction technique. Findings: Evaluation of the solid organs is limited by lack of intravenous contrast. Evaluation of enteric structures may be limited by lack of oral contrast. Spleen is enlarged measuring 15.5 cm in axial dimension. Mild fatty liver disease is seen. The pancreas, gallbladder, and bilateral adrenal glands are unremarkable. There is no evidence of bowel obstruction. No free air is identified in the abdomen or pelvis. Appendix appears within normal limits. Urinary bladder is unremarkable. Uterus is absent. Mild-moderate amount of mildly dense fluid is seen in the pelvis, likely representing postoperative hemorrhage. The largest collection is seen in the lower pelvis measuring about 11 x 7 cm in axial dimension x 7 cm in craniocaudal dimension. The left ovary is thought enlarged measuring about 5 cm in maximum dimension. Bilateral kidneys and ureters are free of stone or obstruction. Urinary bladder is unremarkable. Impression: 1. No evidence of urinary stone or obstruction. 2. Mild-moderate amount of mildly dense fluid is seen in the pelvis, presumably postoperative hemorrhage. 3. The left ovary appears enlarged measuring about 5 cm maximum dimension. If there is concern for torsion, pelvic ultrasound could be attempted. DICTATED and SIGNED BY: SOHAN WEBB MD DATE: 03/27/17 4938 CC: YARELY YOUNG MD; CARLOS BURCIAGA APRN; ANDRES HARO PA-C ~ Course & Med Decision Making Course & Med Decision Making Pertinent Labs and Imaging studies reviewed. (See chart for details) This is a 36-year-old female patient who presents today with lower abdominal pain and hematuria. She had a hysterectomy done on March 14, 2017. She followed up with her PCP last week for the lower abdominal pain. She was put on Levaquin. Urine positive for moderate amount of leukocytes, large amount of blood, many bacteria, moderate squamous epi patient cells. WBCs 20-40. CBC with a WBC of 13.5. Hemoglobin 8.[address] of the abdomen and pelvic was noted for moderate amount of fluid in the pelvis region presumably postoperative hemorrhage. No kidney stones were noted. Left ovary appeared enlarged measuring 5 cm maximum details. Pelvic ultrasound was recommended if there is concern for torsion. From physical exam torsion is less likely cause of her pain. She does not have left lower quadrant tenderness on exam. I spoke to patient's TRANSFER ENGINEER Dr. Ekta Rosa. She states patient can follow-up in the office in the course of this week. We did fax results to her office per her request. Patient was discharged in stable condition. She states patient was supposed to follow up with her office today for labs and she is glad she came to the Ed. Dragon Disclaimer Dragon Disclaimer This electronic medical record was generated, in whole or in part, using a voice recognition dictation system. Departure Departure Impression: Primary Impression: Urinary tract infection Additional Impressions: Anemia Pelvic pain Disposition: HOME, SELF-CARE Condition: STABLE Referrals: ANDRES HARO PA-C (PCP) NAZ ROSA MD follow up with your doctor as soon as you can Patient Instructions: Abdominal Pain, Anemia, FAQs, Urinary Tract Infection Additional Instructions: You were seen for abdominal pain, blood in your urine. Your CT of the abdomen and pelvic shows you have postoperative bleeding in her pelvic region. I spoke to your TRANSFER ENGINEER. She recommended you follow-up as an outpatient in the clinic. Continue taking antibiotics and pain medicines. Come back to the ED symptoms worsen. Problem Qualifiers Primary Impression: Urinary tract infection Urinary tract infection type: acute cystitis Hematuria presence: with hematuria Qualified Codes: N30.01 - Acute cystitis with hematuria Additional Impressions: Anemia Anemia type: unspecified type Qualified Codes: D64.9 - Anemia, unspecified CARLOS BURCIAGA MARELY March 27, 2017 13:35
== END 2017-03-27 13:43 | disposition home or self-care (01) ==
LOC: ER 10:42
DX: N30.01 Acute cystitis with hematuria (principal); D64.9 Anemia, unspecified; R10.2 Pelvic and perineal pain; F41.9 Anxiety disorder, unspecified; F32.9 Major depressive disorder, single episode, unspecified; K21.9 Gastro-esophageal reflux disease without esophagitis; Z88.0 Allergy status to penicillin; Z90.710 Acquired absence of both cervix and uterus; Z98.51 Tubal ligation status
CPT/HCPCS: 36415; 74176; 80053; 81001; 81025; 83690; 84703; 85027; 99285-25

== ENCOUNTER → 2017-04-20 | Outpatient (CLI) | payer MEDICARE, OTHER ==
[2017-03-27 13:00] VITALS: BP 110/70
[~2017-04-20] MED LIST changes: +RAME8TAB19 PO; -RAME8TAB8 PO
--- NOTE | 2017-04-20 12:00 | RAD ---
Indication follow-up postop hematoma. Axial images through the abdomen and pelvis were obtained. The study is limited. No IV or gastrointestinal contrast was administered. Note is made of the previous examination 03/27/2017. The history of lower abdominal bruising following hysterectomy has been provided. Stranding in the subcutaneous soft tissues of the ventral abdominal wall, seen previously compatible with bleeding or inflammation has improved substantially. A new finding in the soft tissues of the abdominal or pelvic wall is not seen. Some stranding in the pelvic mesentery seen previously has also improved. A soft tissue mass adjacent to the rectus muscle in the lower left pelvis persists but appears similar to slightly smaller. The lung bases are clear. The liver and spleen appear unchanged. The gallbladder is grossly normal. No pancreatic adrenal or renal anomaly is seen. Acute finding in the abdomen is not seen. No acute or new finding is seen in the pelvis. IMPRESSION: No acute finding seen in the abdomen or pelvis. Stranding in the soft tissues of the abdominal wall, seen previously, has improved PQRS Compliance Statement: One or more of the following individualized dose reduction techniques were utilized for this examination: 1. Automated exposure control 2. Adjustment of the mA and/or kV according to patient size 3. Use of iterative reconstruction technique
== END | disposition home or self-care (01) ==
LOC: CT 11:02
PROVIDERS: ATTEND Obstetrics & Gynecology
DX: L76.32 Postprocedural hematoma of skin and subcutaneous tissue following other procedure (principal); Y83.8 Other surgical procedures as the cause of abnormal reaction of the patient, or of later complication, without mention of misadventure at the time of the procedure
CPT/HCPCS: 74176

== ENCOUNTER → 2018-11-21 | Outpatient (CLI) | payer MEDICARE, MEDICAID ==
[~2018-11-21] MED LIST changes: +BUDE0.25 NEB; -FERR-26 PO; +FERR325T14 PO; -LAMO200T PO; +LAMO200T2 PO; -OMEP10CA3 PO; +OMEP10CA4 PO; +PROP10TA PO; +QUET25TA5 PO; +RANI-348 PO; +RANI300T3 PO; -RANI75TA95 PO
--- NOTE | 2018-11-21 12:26 | KCIC ---
MR of the left knee Indication: Left knee pain, multiple falls beginning 2 months ago. Medial pain and swelling. Comparison: None are available. Technique: The standard multiplanar sequences are obtained. FINDINGS: Artifact: No significant image degradation. Medial meniscus: Mild signal within the medial meniscus on the coronal images is thought to be artifactual due to motion. No definite tear. Lateral meniscus: Similar, coronal slice signal thought to be artifactual. No definite tear. Anterior cruciate ligament: Intact. Posterior cruciate ligament: Intact Medial collateral ligament: Partial tear proximally Lateral structures: * Iliotibial band: Intact. * Lateral collateral ligament: Intact. * Biceps femoris tendon: Intact * Popliteus tendon attachment: Intact Extensive mechanism: * Patellar tendon: Intact * Quadriceps tendon: Intact * Retinacular structures: Intact Fluid: Small joint effusion. No significant Rodriguez's cyst. Intra-articular bodies: None visualized Joint compartments * patellofemoral joint: Mild cartilage heterogeneity without defect * medial compartment:Intact * lateral compartment:Intact Bones: No acute fracture or bone destruction. There is mild marrow heterogeneity, likely due to red marrow reconversion, as can be seen with obesity, hypoxia or other systemic stress. Soft tissue: Unremarkable Impression: 1. Partial tear of the proximal medial collateral ligament. 2. Signal within the menisci is likely artifactual, no definite tear. Electronically signed by: Agustín Goldman MD (11/21/2018 12:22 PM) [facility]
== END | disposition home or self-care (01) ==
LOC: KCIC MRI 10:27
PROVIDERS: ATTEND Orthopaedic Surgery
DX: S83.412A Sprain of medial collateral ligament of left knee, initial encounter (principal); M25.462 Effusion, left knee; X58.XXXA Exposure to other specified factors, initial encounter; Y93.89 Activity, other specified; Y92.89 Other specified places as the place of occurrence of the external cause; Y99.8 Other external cause status
CPT/HCPCS: 73721

== ENCOUNTER → 2019-02-20 | Day surgery (SDC) | payer MEDICARE, MEDICAID ==
[~2019-02-20] MED LIST changes: +HYDROmorphone 2 MG/ML VIAL IV PRN; +IV RINGERS,LACTATED 1000ML 1,000 ML IV SCH; +LIDOCAINE 1% PF 2 ML VIAL. ID PRN; +LIDOCAINE 2% PF 5 ML VIAL. ONE; +MORPHINE SULFATE 2 MG/ML VIAL. IV PRN; +ONDANSETRON PF 4 MG/2 ML VIAL. IV PRN; +PROCHLORPERAZINE 10 MG/2 ML VIAL. IV PRN; +PROPOFOL 40 ML IV ONE; +fentaNYL PF VIAL 100 MCG/2 ML VIAL IV PRN
[2019-02-20 14:17] VITALS: BP 109/60
--- NOTE | 2019-02-21 00:25 | HP ---
ADMIT DATE: 02/20/2019 REFERRING PHYSICIAN: Dr. Ankit Gomes HISTORY OF PRESENT ILLNESS: This is a 38-year-old female with past medical history significant for ulcerative colitis as well as bipolar disorder, depression, GERD, is seen with worsening heartburn. She has been on Zantac 1.2 grams daily and omeprazole 80 mg daily with continued breakthrough, risk factors for reflux is positive for nicotine, caffeine, but negative for alcohol. No dysphagia or odynophagia encountered. In addition, she has these recent problems with her diarrhea despite colestipol and budesonide and Lomotil. With continued issues, requests additional evaluation with surveillance colonoscopy. This has been present for approximately 10 years. PAST MEDICAL HISTORY: Colonic polyps, history of ulcerative colitis, history of GERD, history of bipolar disorder. ALLERGIES: PENICILLIN. MEDICATIONS: Include diazepam, Lomotil, lamotrigine, lithium, omeprazole, propranolol, Seroquel, ranitidine and venlafaxine. FAMILY AND SOCIAL HISTORY: Significant for colon cancer with an uncle. Smoker and drinker. As stated. REVIEW OF SYSTEMS: Per records. PHYSICAL EXAMINATION: GENERAL: Reveals a well-nourished, well-developed female, is alert, cooperative, in no acute distress. VITAL SIGNS: Temp is 97.9, pulse 72, respirations 20. HEENT: Reveals normocephalic and atraumatic head. Pupils and extraocular muscles are not tested. Sclerae anicteric. NECK: Supple. LUNGS: Clear. CARDIOVASCULAR: Reveals an S1, S2 without S3, S4 or appreciable murmur. ABDOMEN: Reveals a soft abdomen, normal bowel sounds without appreciable splenomegaly or epigastric tenderness to deep palpation. EXTREMITIES: Reveal no cyanosis, clubbing or edema. IMPRESSION: 1. Gastroesophageal reflux disease. The differential is complicated with breakthrough symptoms of Randle's, gastroparesis, achalasia as noted in the differential. Therefore, we recommend upper endoscopy to further assess. Risks and benefits of the procedure including risk of hemorrhage and perforation have been discussed. 2. Ulcerative colitis with a flare despite budesonide and colestipol therapy. 3. Dysplasia, malignancy, stricture, status post colitis with colitis in the differential with reported purported history of celiac disease. Therefore, recommend colonoscopy with biopsies. CIERA MCCAULEY MD DR: Nereida JOB#: [id number] / [id number]
--- NOTE | 2019-02-21 14:06 | PATHOLOGY ---
[facility] Accession Number: [id number] . 01 Material submitted: . PART A: esophagus - DISTAL ESOPHAGUS BIOPSY. Modifiers: distal PART B: colon - RANDOM COLON BIOPSY . 01 Clinical history: . Pre-OP DX: Reflux Post-OP DX: Rule out Randle's, rule out microscopic colitis . 02 Diagnosis: A. Esophageal biopsies, distal esophagus: - Segments of hyperplastic squamous esophageal mucosa, consistent with reflux esophagitis. . B. Random colon biopsies: - Segments of colonic mucosa showing no evidence of an active chronic destructive colitis, microscopic colitis, or dysplasia. (JPM:elena; 02/21/2019) QMS/02/21/2019 . 02 Comment: Sections of the distal esophageal biopsy reveal segments of tangentially oriented, hyperplastic squamous esophageal mucosa. The findings are consistent with reflux esophagitis. There is no evidence of Randle's change, dysplasia, or malignancy. . Sections of the random colon biopsy reveal multiple segments of colonic mucosa containing multiple mucosal-associated lymphoid aggregates. There is no evidence of an active chronic destructive colitis or microscopic colitis. There is no evidence of dysplasia or malignancy. (JPM:elena; 02/21/2019) . 02 Electronically signed: . Goran Urbina MD, Pathologist NPI- [id number] . 01 Gross description: . A. Received in formalin labeled "Guillermo, Yasmeen, distal esophagus BX," are 4 segments of english soft tissue measuring 1.5 x 0.9 x 0.2 cm in aggregate dimensions and ranging from 0.4 to 0.6 cm in maximum dimension. The specimen is submitted entirely in cassette A1. . B. Received in formalin labeled "Li, Yasmeen, random colon BX," are multiple segments of english soft tissue measuring 2.0 x 0.6 x 0.1 cm in aggregate dimensions. The specimen is filtered and entirely submitted in cassette B1. (TSD; 02/20/2019) TOB/TOB . 02 Pathologist provided ICD-10: K21.0, K52.9 . 02 CPT . 147987, 365783 Specimen Comment: A courtesy copy of this report has been sent to Specimen Comment: [phone], . Specimen Comment: Report sent to / DR GOVEA Specimen Comment: A duplicate report has been generated due to demographic updates. Performed at: 01 [facility] [address], [place] [id number] MD Rakesh Trimble MD Phone: [phone] Performed at: 02 [facility] [address] [place], [place] [id number] MD Goran Urbina MD Phone: [phone]
== END | disposition home or self-care (01) ==
LOC: ENDOS 12:12
PROVIDERS: ATTEND Internal Medicine Gastroenterology
DX: K21.0 Gastro-esophageal reflux disease with esophagitis (principal); K64.0 First degree hemorrhoids; K52.9 Noninfective gastroenteritis and colitis, unspecified; Z88.0 Allergy status to penicillin; Z88.8 Allergy status to other drugs, medicaments and biological substances; F31.9 Bipolar disorder, unspecified; Z86.010 Personal history of colon polyps; Z79.899 Other long term (current) drug therapy; F17.200 Nicotine dependence, unspecified, uncomplicated; Z72.89 Other problems related to lifestyle
CPT/HCPCS: 43239; 45380; 88305; J2001; J2704

== ENCOUNTER → 2019-03-13 | Outpatient (CLI) | payer MEDICARE, MEDICAID ==
[2019-02-20 14:17] VITALS: BP 109/60
[~2019-03-13] MED LIST changes: -HYDROmorphone 2 MG/ML VIAL IV PRN; -IV RINGERS,LACTATED 1000ML 1,000 ML IV SCH; -LIDOCAINE 1% PF 2 ML VIAL. ID PRN; -LIDOCAINE 2% PF 5 ML VIAL. ONE; -MORPHINE SULFATE 2 MG/ML VIAL. IV PRN; -ONDANSETRON PF 4 MG/2 ML VIAL. IV PRN; -PROCHLORPERAZINE 10 MG/2 ML VIAL. IV PRN; -PROPOFOL 40 ML IV ONE; -fentaNYL PF VIAL 100 MCG/2 ML VIAL IV PRN
--- NOTE | 2019-03-18 10:30 | SLEEP ---
DATE OF STUDY: 03/13/2019 REFERRING PHYSICIAN: Dr. Mahamed Pena. The patient is a 38 years old who weighs 323 pounds with a BMI of 57. The patient's [place] score was 15. The patient underwent split night study performed at [facility]. During the night study, the patient spent 407 minutes in bed and slept for 365 minutes with a sleep efficiency of 90%. Sleep latency was 17 minutes with a REM latency of 353 minutes. Overall sleep architecture showed normal stage 1 sleep, increased stage 2 sleep, normal N3 sleep and reduced REM sleep. During the initial diagnostic portion of the study, the patient slept for 99 minutes. During that time, the patient had no obstructive apneas, 1 mixed apnea, no central apneas, but 46 hypopneas. The patient's apnea hypopnea index was 29 per hour. Supine index of 55 per hour. REM sleep was not seen during the diagnostic portion. EKG monitoring revealed normal sinus rhythm, average heart rate 67 beats per minute. No arrhythmias observed. Nocturnal oximetry study revealed an average oxygen saturation of 95% with the lowest of 85%; 2% of the time oxygen saturation remained between 80% and 89%. PLMs seen at an index of 6 per hour and 1 per hour caused EEG arousals. The patient met the criteria for CPAP initiation. It was started at 7 cm water and titrated up to 15 cm water. At the final pressure, the patient slept for 85 minutes. The patient had supine as well as REM sleep. The patient's AHI was reduced to 0 per hour and oxygen saturation remained above 91%. The patient used a small size full face mask. IMPRESSION: 1. [id number] sleep apnea-hypopnea syndrome. Total AHI 29 per hour with a supine AHI of 55 per hour. REM sleep was not seen during the diagnostic portion of the study. 2. Mild nocturnal hypoxia secondary to obstructive sleep apnea, but resolved with CPAP. 3. No clinically significant PLMS. RECOMMENDATIONS: 1. CPAP at 15 cm water completely eliminated the patient's sleep apnea and should be used on a nightly basis. 2. Follow up in 4-6 weeks to assess compliance with CPAP and to document clinical improvement. 3. Weight loss is strongly advised. 4. Avoid FLY MAKER depressants. 5. Caution regarding driving until symptoms of sleep apnea resolve with the use of CPAP. ALEXANDRO VUONG MD DR: MADYSON/paula JOB#: [id number] / [id number] Mahamed Lora
== END | disposition home or self-care (01) ==
LOC: SLPLAB 18:49
PROVIDERS: ATTEND Pathology Anatomic Pathology & Clinical Pathology
DX: G47.33 Obstructive sleep apnea (adult) (pediatric) (principal); G47.34 Idiopathic sleep related nonobstructive alveolar hypoventilation
CPT/HCPCS: 95810

== ENCOUNTER → 2020-08-18 | Outpatient (CLI) | payer MEDICARE, MEDICAID ==
[2019-02-20 14:17] VITALS: BP 109/60
[~2020-08-18] MED LIST changes: +IOHEXOL 240 MG/ML 50ML VIAL. PO ONE; +IOHEXOL 300 MG/ML 100ML VIAL. IV ONE; -LAMO200T2 PO; +LAMO200T6 PO; -RANI-348 PO; +RANI-369 PO
--- NOTE | 2020-08-18 16:50 | KCIC ---
EXAMINATION: CT ABD PELV W/ORAL IV CONTRAST (CT ABDOMEN/PELVIS WITH IV CONTRAST) CLINICAL HISTORY: Left lower quadrant pain, evaluate for inguinal hernia. History of 2 C-sections and partial hysterectomy. TECHNIQUE: CT of the abdomen and pelvis was performed using standard technique, scanning from just above the dome of the diaphragm to the symphysis pubis following administration of intravenous contrast. CT Dose Reduction Employed: One or more of the following individualized dose reduction techniques were utilized for this examination: 1. Automated exposure control 2. Adjustment of the mA and/or kV according to patient size 3. Use of iterative reconstruction technique. COMPARISON: 04/20/2017, 03/27/2017 FINDINGS: Lower thorax: Unremarkable. Liver: Diffuse hypoattenuation of the hepatic parenchyma, compatible with steatosis. Biliary: No bile duct dilation. Minimally distended gallbladder. Spleen: No mass. No splenomegaly. Pancreas: No mass or duct dilation. Adrenals: No mass. Kidneys: No mass, calculus or hydronephrosis. GI tract: No dilation or wall thickening. Normal appendix. Lymph nodes: No abdominal or pelvic lymphadenopathy. Mesentery/Peritoneum: Focal lobular density along the inferior left paracolic gutter measuring 3.3 x 3.1 x 5.3 cm (AP x TRV x CC) with mean attenuation 61 HU and slightly less dense internal focus inferiorly. This area previously measured 3.9 x 2.8 x 5.7 cm on comparison from March 2017 with additional similar density in the right inferior paracolic gutter that is not present on the current exam. Retroperitoneum: No mass. Vasculature: The celiac axis and SMA are patent. The portal vein and branches, splenic vein, SMV, and hepatic veins are patent. No abdominal aortic or iliac artery aneurysm. Pelvis: Mildly filled urinary bladder. Partial hysterectomy. Bones/Soft Tissues: Irregularly marginated focal density overlying the inferior left rectus abdominis muscle measuring up to 4.4 x 5.5 x 4.6 cm (AP x TRV x CC) with mean attenuation 63 HU, previously measured 2.0 x 3.9 x 3.1 cm with mean attenuation 44 HU on comparison from March 2017. Small fat-containing umbilical hernia, unchanged. No inguinal hernia. No acute osseous abnormality. IMPRESSION: Similar to slightly smaller density along the left inferior paracolic gutter and enlarged density overlying the left inferior rectus abdominis muscle as described. A nasoenteric nonspecific and could represent residual postoperative changes versus endometriosis with other potential etiologies not excluded. Clinical correlation is advised and MRI could be considered for further evaluation if indicated. Small fat-containing umbilical hernia, unchanged. No inguinal hernia. Electronically signed by: Ángel Dorantes DO (08/18/2020 4:47 PM) [id number]
== END ==
LOC: KCIC CT 13:17
PROVIDERS: ATTEND Internal Medicine Gastroenterology
DX: K42.9 Umbilical hernia without obstruction or gangrene (principal); N32.89 Other specified disorders of bladder
CPT/HCPCS: 74177; Q9966; Q9967

== ENCOUNTER 2020-09-03 08:04 | Outpatient (CLI) | payer MEDICARE, MEDICAID ==
[2020-09-03] VITALS (7 sets, daily range): BP systolic 119–142; BP diastolic 66–86
[~2020-09-03] VITALS: Ht 162.6 cm; Wt 146.5 kg
[~2020-09-03 08:04] MED LIST changes: -IOHEXOL 240 MG/ML 50ML VIAL. PO ONE; -IOHEXOL 300 MG/ML 100ML VIAL. IV ONE
[2020-09-03] MEDS ORDERED: MIRT15TA90 PO (08:55)
[2020-09-03] MEDS ORDERED: PHEN37.53 PO (08:55)
[2020-09-03] MEDS ORDERED: VENTOLIN HFA18 GM INH (08:55)
[2020-09-03] MEDS ORDERED: ARIP10TA15 PO (08:55)
[2020-09-03 09:07] LABS: BASO % 1 % (0-3); EOS % 0 % (0-3); HEMATOCRIT 34.6 % (36.0-47.0); HEMOGLOBIN 11.2 g/dL (12.0-15.5); LYMPH # 1.5 x10^3/uL (1.0-4.8); LYMPH % 17 % (24-48); MEAN CORPUSCULAR HEMOGLOBIN 27 pg (25-35); MEAN CORPUSCULAR HGB CONC 32 g/dL (31-37); MEAN CORPUSCULAR VOLUME 82 fL (79-100); MONO # 0.3 x10^3/uL (0.0-1.1); MONO % 4 % (0-9); NEUT # 6.9 x10^3/uL (1.8-7.7); NEUT % 79 % (31-73); PLATELET COUNT 305 x10^3/uL (140-400); RED BLOOD COUNT 4.22 x10^6/uL (3.50-5.40); RED CELL DISTRIBUTION WIDTH 15.8 % (11.5-14.5); WHITE BLOOD COUNT 8.8 x10^3/uL (4.0-11.0)
[2020-09-03] MEDS ORDERED: LIDOCAINE WITH 8.4% SOD BICARB 3 ML DISP.SYRIN. ONE (09:20)
[2020-09-03 09:27] LABS: PROTHROMBIN TIME PATIENT 13.5 SEC (11.7-14.0)
[2020-09-03] MEDS ORDERED: LIDOCAINE WITH 8.4% SOD BICARB 3 ML DISP.SYRIN. INJ ONE (10:00)
--- NOTE | 2020-09-03 10:04 | PDOC ---
BRIEF OPERATIVE NOTE Pre-Op Diagnosis Abdominal wall and deep pelvic masses, suspect endometriosis Post-Op Diagnosis same Procedure Performed CT bx of abdominal wall mas Surgeon Alia Anesthesia Type: Local Findings 5 x 18g cores of abdominal wall mass Complications no immediate KATHERYN RUIZ MD Sep 03, 2020 10:04
--- NOTE | 2020-09-03 11:09 | NUR ---
Discharge Note: LINDSAY COBOS Discharge instructions and discharge home medications reviewed with Patient and a copy given. All questions have been answered and understanding verbalized. The following instructions and handouts were given: biopsy Dressing site remains dry and intact Patient discharged to Home or Self Care with Family Member via Ambulated JS RN Addendum: 09/03/20 at 1111 by KIMBERLY PAIGE RN Amended: Links added.
--- NOTE | 2020-09-03 14:42 | RAD ---
Procedure: CT-guided biopsy of an anterior abdominal wall mass Clinical Indication: Adult female with anterior abdominal wall mass and the pelvic mass, suspected endometriomas. Sedation: Local anesthesia only. Antibiotics: None Sterility: The procedure was performed in its entirety using appropriate elements of sterile technique. Consent: The procedure was explained in its entirety to the patient or the patients designated workforce services representative by a member of the treatment team, including a discussion of the risks, benefits and commonly accepted alternatives to the procedure, as well as the expected consequences of no therapy whatsoever. Discussion of the risks included, but was not limited to, those that are most frequent and those that are rare but possibly severe or life-threatening, as well as the possibility of unforeseen complications. Technique and Findings: Following informed consent, the patient was prepped and draped in usual sterile fashion. Preliminary CT scan of the area of interest was performed. 1% lidocaine was used to achieve local anesthesia over the area of interest. A small dermatotomy was made. Under periodic CT surveillance, a 17-gauge needle guide was advanced towards the target lesion just anterior to the left rectus abdominis muscle. 5 separate core 18-gauge biopsy specimens were then obtained and preserved in formalin. The needle guide was removed and hemostasis was achieved with manual compression. Complications: No immediate Impression: 1. CT-guided biopsy of an anterior abdominal wall mass as described. PQRS Compliance Statement: One or more of the following individualized dose reduction techniques were utilized for this examination: 1. Automated exposure control 2. Adjustment of the mA and/or kV according to patient size 3. Use of iterative reconstruction technique
--- NOTE | 2020-09-06 15:08 | PATHOLOGY ---
[facility] Accession Number: [id number] . 01 Material submitted: . abdomen - ABDOMINAL WALL MASS. Modifiers: wall . 02 Diagnosis: Fibroadipose tissue, abdominal wall mass needle biopsies: - Endometriosis, with associated scarring and focal chronic inflammation. (JPM:elena; 09/06/2020) S 09/06/2020 0857 Local . 02 Comment: There is no evidence of malignancy. (JPM:elena; 09/06/2020) . 02 Electronically signed: . Goran Urbina MD, Pathologist NPI- [id number] . 01 Gross description: . Received in formalin labeled "Guillermo, Yasmeen, abdominal mass biopsy" are multiple cylindrical cores of english-white tissue measuring in aggregate 1.3 x 0.6 x 0.1 cm. The specimen is submitted entirely in cassettes A1-A3. ([facility] [place]; 09/04/2020) [facility] 09/04/2020 1048 Local . 02 Pathologist provided ICD-10: N80.8 . 02 CPT . 989652 Specimen Comment: A courtesy copy of this report has been sent to [phone], [phone] Specimen Comment: [id number], Specimen Comment: Report sent to ,DR MCKEE / DR GOVEA Performed at: 01 [facility] [address], [place] [id number] MD Jose Helms MD Phone: [phone] Performed at: 02 [facility] [address] [place], [place] [id number] MD Goran Urbina MD Phone: [phone]
== END 2020-09-03 11:05 | disposition home or self-care (01) ==
LOC: INTRAD 08:04
PROVIDERS: ATTEND Surgery
DX: R19.00 Intra-abdominal and pelvic swelling, mass and lump, unspecified site (principal); K21.9 Gastro-esophageal reflux disease without esophagitis; G47.30 Sleep apnea, unspecified; E66.9 Obesity, unspecified; Z98.51 Tubal ligation status; Z90.410 Acquired total absence of pancreas; Z98.890 Other specified postprocedural states; Z79.899 Other long term (current) drug therapy; Z87.891 Personal history of nicotine dependence; Z88.0 Allergy status to penicillin; Z68.43 Body mass index [BMI] 50.0-59.9, adult
CPT/HCPCS: 20206; 36415; 77012; 85025; 85610; 85730; 88305; J3490